=== PATIENT | male | born 1950 | race Hispanic/Latino ===

== ENCOUNTER 2018-10-02 09:28 | Day surgery (SDC) | payer MEDICARE, OTHER ==
[2018-10-02 09:53] VITALS: O2SAT 97
[2018-10-02] MEDS ORDERED: Lidocaine 1% Inj (20ml) ONE (11:17)
[2018-10-02] MEDS ORDERED: Bupivacaine 0.5% 50 ML IJ ONE (11:17)
[2018-10-02] MEDS ORDERED: Bupivacaine 0.5% Inj(30mL) IJ ONE (13:02)
[2018-10-02] MEDS ORDERED: Lidocaine 1% Inj (20ml) IJ ONE (13:02)
[2018-10-02] MEDS ORDERED: Bacitracin Ointment 30 GM TUBE ONE (13:16)
[2018-10-02 13:22] VITALS: BMI 29.8
[2018-10-02 14:01] VITALS: BP 149/70; PULSE 63; RESP 18; TEMP 98.1
--- NOTE | 2018-10-02 22:56 | PCM.SURG1 ---
Surgeon's Initial Post Op Note - Surgeon's Notes Surgeon: Dr. Brand Cake Press Operator: Dr. Hughes PGY3, Dr Menchaca PGY1 Type of Anesthesia: Block Regional, Moderate Sedation{RN}, Local Pre-Operative Diagnosis: L index finger lesion Operative Findings: see dictation Post-Operative Diagnosis: same Operation Performed: excision of L index finger lesion Specimen/Specimens Removed: L index finger lesion Estimated Blood Loss: EBL {In ML}: 5 Blood Products Given: N/A Drains Used: No Drains Post-Op Condition: Good Date of Surgery/Procedure: 10/02/18 Time of Surgery/Procedure: 13:30
--- NOTE | 2018-10-03 06:38 | OP ---
PROCEDURE DATE: 10/02/2018 PREOPERATIVE DIAGNOSIS: Left index finger lesion. POSTOPERATIVE DIAGNOSIS: Left index finger lesion. SURGEON: John Brand MD. ASSISTANTS: Deanne Hughes, PGY3 and Rich Menchaca PGY1 TYPE OF ANESTHESIA: moderate sedation, Regional block, local anesthesia. SPECIMEN: Left index finger lesion. INDICATION: This is a 68-year-old male who presented to Same Day with a left index finger lesion that had been present for quite a few years, and was recently enlarging and causing some discomfort. Decision was made to remove the lesion and sent for pathology. DESCRIPTION OF PROCEDURE: Consent was obtained in Same Day Surgery, patient was brought into the OR, and placed on the operating table. The left hand up and forearm was prepped using chlorhexidine and then draped in sterile fashion. A local nerve block was then applied to the left index finger using 0.5% lidocaine and 0.25% Marcaine mixture. The finger was then stripped of blood and a tourniquet using a Charles drain was then applied to the base of the finger. The patient continued to have sensation to the tip of the finger after the regional nerve block and so additional local was then applied to the tip of the finger. An elliptical incision was made around the lesion of the left index finger using a #15 blade. Electrocautery was then used to remove the base of the lesion from the finger. At that point, the tourniquet was removed and the finger was assessed for hemostasis. No bleeding was seen at that time. Decision was made to then close the incision using single interrupted sutures using 3-0 nylon. Three sutures were required to close the incision. After the incision was closed, the lesion was then sent for pathology and bacitracin was applied to the wound. Gauze as well as finger knitting was used to dress the wound. The patient tolerated the procedure well and was taken back to Same Day Surgery. Pt was discharged home with instructions on wound care and followup. Deanne Hughes, DO John Brand MD. JOHN
== END 2018-10-02 15:00 ==
LOC: SDS 09:28 → OPSURG 09:28
PROVIDERS: ATTEND Surgery
DX: R22.32 Localized swelling, mass and lump, left upper limb (principal); I10 Essential (primary) hypertension; F33.9 Major depressive disorder, recurrent, unspecified; I67.9 Cerebrovascular disease, unspecified